=== PATIENT | female | born 1990 | race Caucasian/White ===

== ENCOUNTER 2016-12-12 02:00 | Emergency (ER) | payer OTHER ==
[2016-12-12 02:27] VITALS: BP 122/83; PULSE 82; TEMP 97.6; BMI 42.9
[2016-12-12] MEDS ORDERED: LIDOCAINE HCL/PF 1% SDV 5ML VIAL ONE (02:35)
--- NOTE | 2016-12-12 03:06 | PDOC ---
History of Present Illness - General Chief Complaint: Foreign Body (FB) Stated Complaint: FOREIGN BODY EAR AREA Time Seen by Provider: 12/12/16 02:33 - History of Present Illness Initial Comments: 12/12/16 03:02 CHIEF COMPLAINT: foreign body in ear HISTORY OF PRESENT ILLNESS: 26 yo F with no PMH presents to ED with foreign body to R ear. Patient reports that she had a piercing placed one month ago and she has a toddler who "messes with it" and earlier tonight both of the balls holding the earring in came off and she was unable to remove the remainder of the piercing. She denies any fever, nausea, vomiting, diarrhea but states that she felt like "the area was getting swollen so I came in to get it out." No recent travel or sick contacts. PAST MEDICAL HISTORY: Denies past medical history FAMILY HISTORY: Denies SOCIAL HISTORY: Denies tobacco, alcohol, illicit drug use. SURGICAL HISTORY: Denies ALLERGIES: No known drug allergies REVIEW OF SYSTEMS General/Constitutional: Denies fever or chills. Denies weakness, weight change. HEENT: Denies change in vision. Denies ear pain or discharge. Denies sore throat. Cardiovascular: Denies chest pain or shortness of breath. Respiratory: Denies cough, wheezing, or hemoptysis. Gastrointestinal: Denies nausea, vomiting, diarrhea or constipation. Denies rectal bleeding. Genitourinary: Denies dysuria, frequency, or change in urination. Musculoskeletal: Denies joint or muscle swelling or pain. Denies neck or back pain. Skin and breasts: I have part of my earring stuck inside my ear. PHYSICAL EXAM General Appearance: Well-appearing, appropriately dressed. HEENT: EOMI, PERRLA. Respiratory/Chest: Lungs CTAB. Cardiovascular: RRR. S1, S2. Musculoskeletal/Extremities: Normal inspection. FROM of all extremities, normal capillary refill. Pelvis Stable. No CVA tenderness. No tenderness to extremities, pedal edema, swelling, erythema or deformity. Integumentary: Foreign body to R tragus. Appropriate color, dry, warm. No cyanosis, erythema, jaundice or rash Neurologic: sliver lap machine tender II-XII intact. Fully oriented, alert. Appropriate mood/affect. Motor strength 5/5. No appreciable EOM palsy, facial droop or sensory deficit. 12/13/16 06:47 Past History - Past Medical History Allergies/Adverse Reactions: Allergies Allergy/AdvReac Type Severity Reaction Status Date / Time No Known Drug Allergies Allergy Verified 12/12/16 02:21 seafood Allergy Swelling Uncoded 12/12/16 02:21 Home Medications: Ambulatory Orders NK [No Known Home Medication] 12/12/16 Asthma: No Cancer: No Cardiac Disorders: No Diabetes: No GI Disorders: Yes (gallstones) HTN: No Seizures: No Thyroid Disease: No Other medical history: Pt denies - Surgical History Cholecystectomy: Yes - Immunization History Immunization Up to Date: Yes - Psycho/Social/Smoking Cessation Hx Anxiety: No Suicidal Ideation: No Smoking History: Never smoked Have you smoked in the past 12 months: No Number of Cigarettes Smoked Daily: 0 Information on smoking cessation initiated: No Hx Alcohol Use: No Drug/Substance Use Hx: No Substance Use Type: None Hx Substance Use Treatment: No *Physical Exam - Vital Signs Last Vital Signs Temp Pulse Resp BP Pulse Ox 97.6 F 82 19 122/83 98 12/12/16 02:21 12/12/16 02:21 12/12/16 02:21 12/12/16 02:21 12/12/16 02:21 ED Treatment Course - RADIOLOGY Radiology Studies Ordered: Category Date Time Status FACIAL BONES [RAD] Stat Radiology 12/12/16 03:01 Ordered MANDIBLE ONE SIDE [RAD] Stat Radiology 12/12/16 03:01 Ordered Medical Decision Making - Medical Decision Making 12/13/16 06:47 26 yo F with no PMH presents to ED with foreign body to R ear. Foreign body unable to be extricated in ED. Patient will need follow up with ENT for surgical excision of foreign body. Patient states she will see ENT today in office for surgical removal. Advised patient of signs and symptoms for return to ER; patient verbalized understanding and agree to plan. *DC/Admit/Observation/Transfer Diagnosis at time of Disposition: Foreign body of skin of ear region Qualifiers: Encounter type: initial encounter Laterality: right Qualified Code(s): S00.451A - Superficial foreign body of right ear, initial encounter - Discharge Dispostion Admit: No - Referrals Referrals: Adrianne Dubon MD [Primary Care Provider] - Blaze Patton MD [Staff Physician] - - Patient Instructions Additional Instructions: As discussed, please call the ENT doctor in the morning and tell him that you were seen in the ER overnight and referred to him for an appointment this morning. If you experience any fever, nausea, vomiting, diarrhea, or any new or worsening symptoms, please return to the ER.
== END 2016-12-12 05:16 | disposition home or self-care (01) ==
LOC: JER 02:00
DX: S00.451A Superficial foreign body of right ear, initial encounter (principal); X58.XXXA Exposure to other specified factors, initial encounter; Y93.89 Activity, other specified; Y92.9 Unspecified place or not applicable
CPT/HCPCS: 70150-TC; 84703; 99281-25; 99282-25

== ENCOUNTER 2017-03-08 15:46 | Emergency (ER) | payer OTHER ==
[2017-03-08 15:52] VITALS: TEMP 98.7; BMI 43.4
--- NOTE | 2017-03-08 16:54 | PDOC ---
History of Present Illness - General Chief Complaint: Back Pain Stated Complaint: LOWER BACK PAIN Time Seen by Provider: 03/08/17 16:23 History Source: Patient Exam Limitations: No Limitations - History of Present Illness Initial Comments: 03/08/17 17:22 My Chief complaint: Lower back pain getting worse History of present illness: Patient is a 26 year old female with no significant medical history here today complaining of worsening lower back pain that started last night after coming back from school with a backpack. Patient denies any radiation of pain down the legs or any saddle anesthesia or incontinency. Patient denies ever having any back injuries or any falls. Patient took ibuprofen yesterday with some relief of pain. Patient has not taken anything today. Patient denies any numbness or weakness of her legs. 03/08/17 23:13 Occurred: reports: yesterday Severity: reports: severe Pain Location: reports: back Method of Injury: Yes: unknown Modifying Factors: improves with: None Loss of Consciousness: no loss of consciousness Associated Symptoms (Fall): muscle spasms (lumbar b/l ) Past History - Past Medical History Allergies/Adverse Reactions: Allergies Allergy/AdvReac Type Severity Reaction Status Date / Time No Known Drug Allergies Allergy Verified 03/08/17 15:48 seafood Allergy Swelling Uncoded 03/08/17 15:48 Home Medications: Ambulatory Orders Diazepam [Valium] 5 mg PO Q8H PRN #3 tablet MDD 3 03/08/17 Naproxen [Naprosyn -] 500 mg PO BID PRN #14 tablet 03/08/17 Asthma: No Cancer: No Cardiac Disorders: No Diabetes: No GI Disorders: Yes (gallstones) HTN: No Seizures: No Thyroid Disease: No - Surgical History Cholecystectomy: Yes - Immunization History Immunization Up to Date: Yes - Suicide/Smoking/Psychosocial Hx Smoking History: Never smoked Have you smoked in the past 12 months: No Number of Cigarettes Smoked Daily: 0 Information on smoking cessation initiated: No Hx Alcohol Use: No Drug/Substance Use Hx: No Substance Use Type: None Hx Substance Use Treatment: No Review of Systems - Review of Systems Able to Perform ROS?: Yes Constitutional: No: Symptoms Reported HEENTM: No: Symptoms Reported Respiratory: No: Symptoms reported Cardiac (ROS): No: Symptoms Reported ABD/GI: No: Symptoms Reported : No: Symptoms Reported Musculoskeletal: Yes: Back Pain (b/l ), Muscle Pain (lumbar paraspinal muscle b/ l ) Integumentary: No: Symptoms Reported Neurological: No: Symptoms reported *Physical Exam - Vital Signs Last Vital Signs Temp Pulse Resp BP Pulse Ox 98.7 F 117 H 20 101/30 97 03/08/17 15:49 03/08/17 15:49 03/08/17 15:49 03/08/17 15:49 03/08/17 15:49 - Physical Exam General Appearance: Yes: Appropriately Dressed Respiratory/Chest: positive: Lungs Clear, Normal Breath Sounds. negative: Chest Tender, Respiratory Distress Cardiovascular: positive: Regular Rhythm, Regular Rate, S1, S2 Vascular Pulses: Dorsalis-Pedis (R): 4+, Doralis-Pedis (L): 4+ Musculoskeletal: positive: Normal Inspection, Decreased Range of Motion (at waist with flexion/extension), Muscle Spasm (b/l paraspinal lumbar). negative: CVA Tenderness, CVA Tenderness (R), CVA Tenderness (L), Vertebral Tenderness Extremity: positive: Normal Capillary Refill, Normal Inspection, Normal Range of Motion Integumentary: positive: Normal Color Neurologic: positive: Motor Strength 5/5 (b/l legs ), Respond to painful stimul , Responsive, Other (negative SLR b/l). negative: Numbness, Sensory Deficit (b/ l legs ) Medical Decision Making - Medical Decision Making 03/08/17 17:24 Patient is a 26 year old female with no significant medical history here today complaining of worsening lower back pain that started last night after [place] from school with a backpack. Patient denies any radiation of pain down the legs or any saddle anesthesia or incontinency. Patient denies ever having any back injuries or any falls. Patient took ibuprofen yesterday with some relief of pain. Patient has not taken anything today. Patient denies any numbness or weakness of her legs. Patient reports spasming of muscles and lower back aching it difficult for her to stand up straight Back strain lower with muscle spasm Plan: Urine hCG negative Toradol 60 mg IM now Valium 5 mg by mouth now 03/08/17 17:44 Opiate and Jessica called lab to see why he was taking so long for hCG was told that she could not find the urine sample. I called lab few minutes later spoke with my he has and it was told that it would take 5 more minutes to get results 03/08/17 17:57 03/08/17 19:22 feeling better will discharge to home with valium 5mg q8 hr prn muscle spasm # 3 tabs naprosyn 500 mg bid prn pain # 14 tabs follow up with ortho *DC/Admit/Observation/Transfer Diagnosis at time of Disposition: Low back strain Qualifiers: Encounter type: initial encounter Qualified Code(s): S39.012A - Strain of muscle, fascia and tendon of lower back, initial encounter - Discharge Dispostion Disposition: HOME Condition at time of disposition: Stable - Prescriptions Prescriptions: Naproxen [Naprosyn -] 500 mg PO BID PRN #14 tablet PRN Reason: Pain Diazepam [Valium] 5 mg PO Q8H PRN #3 tablet MDD 3 PRN Reason: Muscle Spasms - Referrals Referrals: Adrianne Dubon MD [Primary Care Provider] - Bautista Hines MD [Staff Physician] - - Patient Instructions Additional Instructions: Follow Up with orthopedist as soon as possible Return to emergency room if symptoms worsen any weakness or numbness of legs or worsening pain Patient voiced understanding of discharge instructions and all questions were answered Thank you for choosing [facility] emergency room for your medical care today
[2017-03-08 17:27] VITALS: BP 132/76; PULSE 93
[2017-03-08] MEDS ORDERED: KETOROLAC TROMETHAMINE 60 MG/2 ML VIAL IM ONE (17:56)
[2017-03-08] MEDS ORDERED: diazePAM 5 MG TABLET PO ONE (17:56)
[2017-03-08] MEDS ORDERED: diazePAM 5 MG TABLET ONE (17:59)
[2017-03-08] MEDS ORDERED: KETOROLAC TROMETHAMINE 60 MG/2 ML VIAL ONE (17:59)
== END 2017-03-08 19:28 | disposition home or self-care (01) ==
LOC: JERFT 15:46
PROC: 3E0233Z Introduction of Anti-inflammatory into Muscle, Percutaneous Approach (ICD-10-PCS; principal; 2017-03-08)
DX: S39.012A Strain of muscle, fascia and tendon of lower back, initial encounter (principal); X58.XXXA Exposure to other specified factors, initial encounter; Y93.89 Activity, other specified; Y92.9 Unspecified place or not applicable; Z91.013 Allergy to seafood
CPT/HCPCS: 84703; 96372; 99281-25

== ENCOUNTER 2019-07-07 04:58 | Emergency (ER) | payer OTHER ==
[2019-07-07 06:14] VITALS: TEMP 99.2; BMI 42.9
[2019-07-07] MEDS ORDERED: ACETAMINOPHEN 325 MG TABLET (FP) PO ONE (06:14)
[2019-07-07] MEDS ORDERED: ACETAMINOPHEN 325 MG TABLET (FP) ONE (06:20)
--- NOTE | 2019-07-07 06:20 | PDOC ---
History of Present Illness - General Chief Complaint: Cold Symptoms Stated Complaint: BODY PAIN Time Seen by Provider: 07/07/19 06:06 History Source: Patient Exam Limitations: No Limitations - History of Present Illness Initial Comments: 07/07/19 06:15 29 yo female no sig medical hx presents to the ED for 1 day of chills, body aches and nausea without vomiting. States the symptoms began at 3 pm, relieved by Motrin. Denies sick contacts, recent travel, fevers, abdominal pain, changes in bowel or bladder habits, CP, SOB, back pain, MARTÍNEZ, sore throat, cough. Past History - Past Medical History Allergies/Adverse Reactions: Allergies Allergy/AdvReac Type Severity Reaction Status Date / Time No Known Drug Allergies Allergy Verified 07/07/19 06:14 seafood Allergy Swelling Uncoded 07/07/19 06:14 Home Medications: Ambulatory Orders Diazepam [Valium] 5 mg PO Q8H PRN #3 tablet MDD 3 03/08/17 Naproxen [Naprosyn -] 500 mg PO BID PRN #14 tablet 03/08/17 Asthma: No Cancer: No Cardiac Disorders: No Diabetes: No GI Disorders: Yes (gallstones) HTN: No Seizures: No Thyroid Disease: No - Surgical History Cholecystectomy: Yes - Immunization History Immunization Up to Date: Yes - Psycho Social/Smoking Cessation Hx Smoking History: Current every day smoker Have you smoked in the past 12 months: Yes Number of Cigarettes Smoked Daily: 10 Information on smoking cessation initiated: No Hx Alcohol Use: No Drug/Substance Use Hx: No Substance Use Type: None Hx Substance Use Treatment: No Review of Systems - Review of Systems Constitutional: Yes: Symptoms Reported HEENTM: Yes: Symptoms Reported Respiratory: Yes: Symptoms reported Cardiac (ROS): Yes: Symptoms Reported ABD/GI: Yes: Symptoms Reported : Yes: Symptoms Reported Musculoskeletal: Yes: Symptoms Reported Integumentary: Yes: Symptoms Reported Neurological: Yes: Symptoms reported *Physical Exam - Vital Signs Last Vital Signs Temp Pulse Resp BP Pulse Ox 99.2 F 110 H 18 105/78 99 07/07/19 05:00 07/07/19 05:00 07/07/19 05:00 07/07/19 05:00 07/07/19 05:00 - Physical Exam General Appearance: Yes: Nourished, Appropriately Dressed. No: Apparent Distress HEENT: positive: EOMI, Normal ENT Inspection. negative: Tonsillar Exudate, Tonsillar Erythema, TM Erythema Neck: positive: Supple. negative: Carotid bruit, Lymphadenopathy (R), Lymphadenopathy (L), Tender lateral Respiratory/Chest: positive: Lungs Clear, Normal Breath Sounds. negative: Respiratory Distress, Accessory Muscle Use, Crackles, Rales, Rhonchi, Stridor, Wheezing Cardiovascular: positive: Regular Rhythm, Regular Rate, S1, S2. negative: Edema , JVD, Murmur Vascular Pulses: Dorsalis-Pedis (R): 4+, Doralis-Pedis (L): 4+ Gastrointestinal/Abdominal: positive: Flat, Soft. negative: Pulsatile Mass, Protuberent, Distended, Guarding, Rebound, Tenderness Musculoskeletal: negative: CVA Tenderness Extremity: positive: Normal Capillary Refill, Normal Inspection, Normal Range of Motion Integumentary: positive: Normal Color, Dry, Warm Neurologic: positive: Fully Oriented, Alert, Normal Mood/Affect, Normal Response , Motor Strength 5/5 Medical Decision Making - Medical Decision Making 07/07/19 06:18 29 yo female no sig medical hx presents to the ED for 1 day of chills, body aches and nausea without vomiting. States the symptoms began at 3 pm, relieved by Motrin. Denies sick contacts, recent travel, fevers, abdominal pain, changes in bowel or bladder habits, CP, SOB, back pain, MARTÍNEZ, sore throat, cough. Vitals show elevated HR 110, will give tylenol Pending Flu swab and U preg results s/o to day team Discharge - Discharge Information Problems reviewed: Yes Clinical Impression/Diagnosis: Myalgia Condition: Fair - Follow up/Referral Referrals: Stacy Hameed [Primary Care Provider] - - Patient Discharge Instructions Patient Printed Discharge Instructions: DI for Viral Upper Respiratory Infection -- Adult Additional Instructions: Today you were evaluated for body aches. Your symptoms are consistent with a viral infection, but your flu test was negative. At home, please rest and drink lots of soup and other fluids such as tea or sports drinks. See your primary doctor in the next few days for further care. If you experience worsening fever , chills, abdominal pain, diarrhea, vomiting, or any other new or concerning symptoms, please return to the emergency room. - Post Discharge Activity
--- NOTE | 2019-07-07 06:36 | PDOC ---
Attending Attestation - Resident Resident Name: Tray Real - ED Attending Attestation I have performed the following: I have examined & evaluated the patient, The case was reviewed & discussed with the resident, I agree w/resident's findings & plan, Exceptions are as noted - HPI HPI: 07/07/19 06:34 29yoF w/ myalgias x yesterday, resolved w/ NSAIDs. Occurred yesterday. no fevers, no uri symptoms. - Physicial Exam PE: 07/07/19 06:35 nad, well appearing rrr ctabl soft ntnd A&O x 3 - Medical Decision Making 07/07/19 06:35 29yoF w/ myalgias. Incidentally noted to have missed her recent period. - upt - DC
--- NOTE | 2019-07-07 07:31 | PDOC ---
*Physical Exam - Vital Signs Last Vital Signs Temp Pulse Resp BP Pulse Ox 99.2 F 110 H 18 105/78 99 07/07/19 05:00 07/07/19 05:00 07/07/19 05:00 07/07/19 05:00 07/07/19 06:43 <Antony Chris - Last Filed: 07/07/19 07:53> - Vital Signs Last Vital Signs Temp Pulse Resp BP Pulse Ox 99.2 F 110 H 18 105/78 99 07/07/19 05:00 07/07/19 05:00 07/07/19 05:00 07/07/19 05:00 07/07/19 06:43 <Toribio Schaffer - Last Filed: 07/08/19 20:27> ED Treatment Course - ADDITIONAL ORDERS Additional order review: Laboratory Results 07/07/19 07:00 Urine HCG, Qual Negative - Medications Given in the ED: ED Medications Discontinued Medications Generic Name Dose Route Start Last Admin Trade Name Freq PRN Reason Stop Dose Admin Acetaminophen 650 mg 07/07/19 06:14 07/07/19 06:22 Tylenol - PO 07/07/19 06:15 650 mg ONCE ONE Administration <Antony Chris - Last Filed: 07/07/19 07:53> - ADDITIONAL ORDERS Additional order review: Laboratory Results 07/07/19 07:00 Urine HCG, Qual Negative - Medications Given in the ED: ED Medications Discontinued Medications Generic Name Dose Route Start Last Admin Trade Name Freq PRN Reason Stop Dose Admin Acetaminophen 650 mg 07/07/19 06:14 07/07/19 06:22 Tylenol - PO 07/07/19 06:15 650 mg ONCE ONE Administration <Toribio Schaffer - Last Filed: 07/08/19 20:27> Medical Decision Making - Medical Decision Making 07/07/19 07:27 Signed out to me by Dr. Real. 29F here for one day of bodyaches improved by ibuprofen. VS shows tachycardia to 110, afebrile. Says she missed her period recently. Getting Upreg/UA, flu test, then likely dispo home for URI. [] Upreg [X] flu [] dispo test negative. 07/07/19 08:45 Patient care transferred to Dr. Chris, plan for discharge once Upreg negative. <Toribio Schaffer - Last Filed: 07/08/19 20:27> Discharge - Discharge Information Problems reviewed: Yes <Antony Chris - Last Filed: 07/07/19 07:53> - Discharge Information Problems reviewed: Yes <Toribio Schaffer - Last Filed: 07/08/19 20:27> - Discharge Information Clinical Impression/Diagnosis: Myalgia Condition: Fair Disposition: HOME - Follow up/Referral Referrals: Stacy Hameed [Primary Care Provider] - - Patient Discharge Instructions Patient Printed Discharge Instructions: DI for Viral Upper Respiratory Infection -- Adult Additional Instructions: Today you were evaluated for body aches. Your symptoms are consistent with a viral infection, but your flu test was negative. At home, please rest and drink lots of soup and other fluids such as tea or sports drinks. See your primary doctor in the next few days for further care. If you experience worsening fever , chills, abdominal pain, diarrhea, vomiting, or any other new or concerning symptoms, please return to the emergency room. - Post Discharge Activity
[2019-07-07 08:27] VITALS: PULSE 93
[2019-07-07 08:33] VITALS: BP 110/58
== END 2019-07-07 08:33 | disposition home or self-care (01) ==
LOC: JER 04:58
DX: M79.18 Myalgia, other site (principal); Z90.49 Acquired absence of other specified parts of digestive tract; Z91.013 Allergy to seafood
CPT/HCPCS: 84703; 87804; 99283-25

== ENCOUNTER 2019-07-16 14:44 | Emergency (ER) | payer SELFPAY ==
[2019-07-16 15:05] VITALS: BMI 43.1
--- NOTE | 2019-07-16 16:11 | PDOC ---
History of Present Illness - General Chief Complaint: Edema Stated Complaint: HAND FEET SWOLLEN Time Seen by Provider: 07/16/19 15:49 History Source: Patient Exam Limitations: Clinical Condition - History of Present Illness Initial Comments: 07/16/19 16:07 Patient with no significant past medical history presented with complaint of 3- day history of whole joint pains to bilateral upper and lower extremities with increased pain to bilateral wrists and knuckles without trauma or injury. Patient reports she was seen 2 weeks ago for viral syndrome which improved but now having other joint pains. Denies any recent travel, fever, history of gout. Report intermittent redness to bilateral wrist and swelling without trauma. Patient has not taken anything for symptoms Is this a multiple visit Asthma Patient?: No Past History - Past Medical History Allergies/Adverse Reactions: Allergies Allergy/AdvReac Type Severity Reaction Status Date / Time No Known Drug Allergies Allergy Verified 07/16/19 15:00 seafood Allergy Swelling Uncoded 07/16/19 15:00 Asthma: No Cancer: No Cardiac Disorders: No COPD: No Diabetes: No GI Disorders: Yes (gallstones) HTN: No Seizures: No Thyroid Disease: No - Surgical History Cholecystectomy: Yes - Immunization History Immunization Up to Date: Yes - Psycho Social/Smoking Cessation Hx Smoking History: Unknown if ever smoked Have you smoked in the past 12 months: Yes Number of Cigarettes Smoked Daily: 10 Hx Alcohol Use: No Drug/Substance Use Hx: No Substance Use Type: None Hx Substance Use Treatment: No Review of Systems - Review of Systems Able to Perform ROS?: Yes Is the patient limited Cymro proficient: No Constitutional: No: Chills, Fever, Malaise HEENTM: No: Symptoms Reported, See HPI, Eye Pain, Blurred Vision, Tearing, Recent change in vision, Double Vision, Cataracts, Ear Pain, Ocular Prothesis, Ear Discharge, Nose Pain, Nose Congestion, Tinnitus, Nose Bleeding, Hearing Loss , Throat Pain, Throat Swelling, Mouth Pain, Dental Problems, Difficulty Swallowing, Mouth Swelling, Other Respiratory: No: Symptoms reported, See HPI, Cough, Orthopnea, Shortness of Breath, SOB with Exertion, SOB at Rest, Stridor, Wheezing, Productive cough, Hemoptysis, Other Cardiac (ROS): No: Symptoms Reported, See HPI, Chest Pain, Edema, Irregular Heart Rate, Lightheadedness, Palpitations, Syncope, Chest Tightness, Other Musculoskeletal: Yes: Symptoms Reported, See HPI, Joint Pain (joint pain to b/l upper extremity and lower extremity) Integumentary: No: Symptoms Reported, Bruising Neurological: Yes: Symptoms reported, See HPI, Tingling (intermittent tingling sensation in b/l hands) All Other Systems: Reviewed and Negative *Physical Exam - Vital Signs Last Vital Signs Temp Pulse Resp BP Pulse Ox 98.3 F 93 H 18 122/81 99 07/16/19 15:02 07/16/19 15:02 07/16/19 15:02 07/16/19 15:02 07/16/19 15:02 - Physical Exam 07/16/19 16:17 GENERAL: Well developed, well nourished. Awake and alert. No acute distress. CARDIOVASCULAR: Regular rate and rhythm. No murmurs, rubs, or gallops. PULMONARY: No evidence of respiratory distress. Lungs clear to auscultation bilaterally. No wheezing, rales or rhonchi. MUSCULOSKELETAL : No tenderness to bilateral knee. No visible swelling or deformity bilateral wrists or elbow. No tenderness on bilateral wrists. Mild tenderness with flexion and extension of bilateral wrists. SKIN: Warm and dry. Normal capillary refill. No visible swelling to bilateral upper and lower extremities. NEUROLOGICAL: Alert, awake, appropriate. No motor deficits in the lower extremities. Gait is normal without ataxia. PSYCHIATRIC: Cooperative. Good eye contact. Appropriate mood and affect. General Appearance: Yes: Nourished, Appropriately Dressed. No: Apparent Distress Medical Decision Making - Medical Decision Making 07/16/19 16:08 Patient with no significant past medical history presented with complaint of 3- day history of whole joint pains to bilateral upper and lower extremities with increased pain to bilateral wrists and knuckles without trauma or injury. Patient reports she was seen 2 weeks ago for viral syndrome which improved but now having other joint pains. Denies any recent travel, fever, history of gout. Report intermittent redness to bilateral wrist and swelling without trauma. Patient has not taken anything for symptoms Exam significant for no clear visible swelling to bilateral hands or extremities. Mild tenderness with flexion extension of bilateral wrist. No tenderness of bilateral knees which patient reported pain is improved today. Patient also requests serum test due to not having her menstrual period for 2 months. Symptoms likely muscle strain versus gout. Uric acid and ESR lab ordered. CRP ordered to rule out anti-inflammatory. Serum hCG ordered as per patient request 07/16/19 16:19 Patient signed out to [facility] Osorio for follow-up care Discharge - Discharge Information Problems reviewed: Yes Clinical Impression/Diagnosis: Myalgia Condition: Stable - Follow up/Referral - Patient Discharge Instructions - Post Discharge Activity
[2019-07-16 17:12] LABS: URIC ACID 3.8 mg/dL (2.6-7.2)
[2019-07-16] MEDS ORDERED: KETOROLAC TROMETHAMINE 30 MG/1 ML VIAL IM ONE (18:38)
--- NOTE | 2019-07-16 18:44 | PDOC ---
*Physical Exam - Vital Signs Last Vital Signs Temp Pulse Resp BP Pulse Ox 98.3 F 93 H 18 122/81 99 07/16/19 15:02 07/16/19 15:02 07/16/19 15:02 07/16/19 15:02 07/16/19 15:02 ED Treatment Course - ADDITIONAL ORDERS Additional order review: Laboratory Results 07/16/19 07/16/19 14:02 14:02 Uric Acid 3.8 C-Reactive Protein 1.0 H Serum , Qual Negative ED Progress Note - Progress Note Progress Note: 07/16/19 18:41 Case signed out by SU Brock Reviewed labs with patient Ordered IM Toradol 30 mg x 1 dose Advised patient to follow-up with neurology within 2 to 3 days and with PMD within 1 week Return precautions advised 07/16/19 18:41 Discharge - Discharge Information Problems reviewed: Yes Clinical Impression/Diagnosis: Myalgia Arthralgia Qualifiers: Joint pain location: unspecified Qualified Code(s): M25.50 - Pain in unspecified joint Condition: Stable Disposition: HOME - Admission No - Follow up/Referral Referrals: Michele Kelsey MD [Staff Physician] - - Patient Discharge Instructions Additional Instructions: Follow-up with neurology within 2 to 3 days Worsening symptoms return to ED Follow-up with PMD within 1 week Alternate between ibuprofen and acetaminophen every 6 hours as needed - Post Discharge Activity Work/Back to School Note: Back to Work
[2019-07-16] MEDS ORDERED: KETOROLAC TROMETHAMINE 30 MG/1 ML VIAL ONE (18:57)
[2019-07-16 19:05] VITALS: BP 125/82; PULSE 84; TEMP 98
== END 2019-07-16 19:01 | disposition home or self-care (01) ==
LOC: JER 14:44
PROC: 3E0233Z Introduction of Anti-inflammatory into Muscle, Percutaneous Approach (ICD-10-PCS; principal; 2019-07-16)
DX: M79.18 Myalgia, other site (principal); M25.532 Pain in left wrist; M25.531 Pain in right wrist; M25.542 Pain in joints of left hand; M25.541 Pain in joints of right hand
CPT/HCPCS: 36415; 84550; 84703; 85651; 86140; 99284-25

== ENCOUNTER 2021-04-26 18:49 | Emergency (ER) | payer OTHER ==
[2021-04-26 18:55] VITALS: BMI 38.6
[2021-04-26] MEDS ORDERED: KETOROLAC TROMETHAMINE 30 MG/1 ML VIAL IVPUSH ONE (19:31)
[2021-04-26] MEDS ORDERED: SODIUM CHLORIDE 1,000 ML IV STA (19:31)
[2021-04-26] MEDS ORDERED: KETOROLAC TROMETHAMINE 30 MG/1 ML VIAL ONE (19:40)
[2021-04-26 20:16] LABS: BASO % 0.5 % (0-2.0); EOS % 0.2 % (0-4.5); HEMATOCRIT 36.9 % (32.4-45.2); HEMOGLOBIN 12.7 GM/dL (10.7-15.3); LYMPH % 13.9 % (8-40); MCH 30.6 pg (25.7-33.7); MCHC 34.4 g/dl (32.0-36.0); MEAN PLT VOLUME 8.4 fl (7.5-11.1); MONO % 6.7 % (3.8-10.2); NEUT % 78.7 % (42.8-82.8); PLATELET COUNT 251 10^3/uL (134-434); RBC 4.15 M/mm3 (3.60-5.2); RDW 12.7 % (11.6-15.6); WHITE BLOOD COUNT 14.7 K/mm3 (4.0-10.0)
[2021-04-26 20:24] LABS: PH,URINE 8.5 (5.0-8.0); URINE APPEARANCE CLEAR; URINE BILIRUBIN NEGATIVE (NEGATIVE); URINE COLOR YELLOW; URINE GLUCOSE (UA) NEGATIVE (NEGATIVE); URINE KETONE NEGATIVE (NEGATIVE); URINE LEUK ESTERASE NEGATIVE (NEGATIVE); URINE NITRITE NEGATIVE (NEGATIVE); URINE PROTEIN NEGATIVE (NEGATIVE)
[2021-04-26 20:49] LABS: ALBUMIN 3.4 g/dl (3.4-5.0); BILIRUBIN,TOTAL 0.6 mg/dL (0.2-1); BLOOD UREA NITROGEN 6.2 mg/dL (7-18); CALCIUM 8.9 mg/dL (8.5-10.1); CREATININE 0.5 mg/dL (0.55-1.3); TOT PROT 7.3 g/dl (6.4-8.2)
[2021-04-26 20:49] LABS: INR 1.07 (0.83-1.09); PROTHROMBIN TIME (PATIENT) 12.5 SEC (9.7-13.0)
[2021-04-26] MEDS ORDERED: AMOX TR/POT CLAV 875MG/125MG TABLETS (FP) PO ONE (22:29)
[2021-04-26] MEDS ORDERED: AMOX TR/POT CLAV 875MG/125MG TABLETS (FP) ONE (22:41)
[2021-04-26 22:50] VITALS: BP 111/65; PULSE 94; TEMP 98.6
== END 2021-04-27 00:52 | disposition home or self-care (01) ==
LOC: JER 18:49
PROC: 3E0333Z Introduction of Anti-inflammatory into Peripheral Vein, Percutaneous Approach (ICD-10-PCS; principal; 2021-04-26)
PROC: 3E0337Z Introduction of Electrolytic and Water Balance Substance into Peripheral Vein, Percutaneous Approach (ICD-10-PCS; 2021-04-26)
DX: K57.92 Diverticulitis of intestine, part unspecified, without perforation or abscess without bleeding (principal); R10.30 Lower abdominal pain, unspecified
CPT/HCPCS: 36415; 74176-TC; 80053; 81003; 83690; 84703; 85025; 85610; 86850; 86900; 86901; 99284-25

== ENCOUNTER 2023-01-24 18:19 | Emergency (ER) | payer OTHER ==
[2023-01-24 18:38] VITALS: BP 127/77; PULSE 92; RESP 18; TEMP 98.5; BMI 39.4
[2023-01-24] MEDS ORDERED: ACETAMINOPHEN 1000 MG/100 ML BAG IVPB ONE (19:02)
[2023-01-24] MEDS ORDERED: ONDANSETRON 4 MG/2 ML VIAL IVPUSH ONE (19:02)
[2023-01-24] MEDS ORDERED: SODIUM CHLORIDE 0.9% 500 ML INFUS.BAG IV ONE (19:02)
[2023-01-24] MEDS ORDERED: ACETAMINOPHEN INJECTION 100 ML IVPB ONE (19:20)
[2023-01-24] MEDS ORDERED: ONDANSETRON 4 MG/2 ML VIAL ONE (19:20)
[2023-01-24 19:59] LABS: BASO % 0.6 % (0-2.0); EOS % 3.4 % (0-4.5); HEMATOCRIT 37.4 % (32.4-45.2); HEMOGLOBIN 12.6 GM/dL (10.7-15.3); LYMPH % 11.8 % (8-40); MCH 30.5 pg (25.7-33.7); MCHC 33.6 g/dl (32.0-36.0); MEAN CELL VOLUME 90.8 fl (80-96); MEAN PLT VOLUME 9.3 fl (7.5-11.1); MONO % 9.4 % (3.8-10.2); NEUT % 74.8 % (42.8-82.8); PLATELET COUNT 243 10^3/uL (134-434); RBC 4.12 M/mm3 (3.60-5.2); RDW 12.4 % (11.6-15.6)
[2023-01-24 20:09] LABS: POTASSIUM 4.1 mmol/L (3.5-5.1)
[2023-01-24 20:11] LABS: ALBUMIN 3.8 g/dl (3.4-5.0); BLOOD UREA NITROGEN 9.1 mg/dL (7-18); CALCIUM 8.8 mg/dL (8.5-10.1)
[2023-01-24 20:14] LABS: CREATININE 0.6 mg/dL (0.55-1.3)
[2023-01-24 20:16] LABS: BILIRUBIN,TOTAL 0.5 mg/dL (0.2-1); TOT PROT 7.3 g/dl (6.4-8.2)
== END 2023-01-24 21:53 | disposition home or self-care (01) ==
LOC: JER 18:19 → JERFT 18:19
PROC: 3E033NZ Introduction of Analgesics, Hypnotics, Sedatives into Peripheral Vein, Percutaneous Approach (ICD-10-PCS; principal; 2023-01-24)
PROC: 3E033GC Introduction of Other Therapeutic Substance into Peripheral Vein, Percutaneous Approach (ICD-10-PCS; 2023-01-24)
DX: U07.1 COVID-19 (principal); R07.0 Pain in throat; R09.81 Nasal congestion; R11.2 Nausea with vomiting, unspecified; M79.10 Myalgia, unspecified site; R63.8 Other symptoms and signs concerning food and fluid intake; R51.9 Headache, unspecified
CPT/HCPCS: 0241U-QW; 36415; 80053; 84703; 85025; 99284-25